=== PATIENT | female | born 1980 | race Caucasian/White ===

== ENCOUNTER 2016-10-17 10:21 | Emergency (ER) | payer OTHER ==
[2016-10-17 11:59] VITALS: BP 118/62
[2016-10-17] MEDS ORDERED: Albuterol/Ipratropium NEB.SOL* Albuterol 2.5 MG/Ipratropium 0.5 MG 3 ML INH ONE (12:45)
--- NOTE | 2016-10-17 12:52 | UC ---
Throat Pain/Nasal Charles HPI - HPI Summary HPI Summary: 35 patient presents today with complains of a sinus infection that started approximately 1 week ago. 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 She states the congestion has progressively gotten worse over the past week. She has allergies and is prone to getting sinus infections. Admits to sinus pressure, throbbing headache, pressure behind eyes and head feeling full. Denies sore throat, ear pain. Also complains of a cough due to post nasal drip and her asthma. Patient has been out of her inhaler and has been using an one that has not seemed to help her. Admits to wheezing, bronchospasms and chest tightness. Denied difficulty breathing. She has not used anything besides hot cider vinegar tea and hydrogen peroxide in her ears. She has a deviated septum and can not use nasal sprays. Denies chest pain, nausea, vomiting, abdominal pain and fever/chills. - History of Current Complaint Chief Complaint: UCRespiratory Stated Complaint: SINUS COMPLAINT Time Seen by Provider: 10/17/16 12:09 Hx Obtained From: Patient Hx Last Menstrual Period: 1 WEEK AGO ?: No Onset/Duration: Sudden Onset, Lasting Days - 7, Worse Since Severity: Moderate Pain Intensity: 6 Pain Scale Used: 0-10 Numeric Cough: Nonproductive Associated Signs & Symptoms: Positive: Wheezing, Sinus Discomfort, Nasal Discharge - Allergies/Home Medications Allergies/Adverse Reactions: Allergies Allergy/AdvReac Type Severity Reaction Status Date / Time Clarithromycin [From Biaxin] Allergy Nausea And Verified 10/17/16 11:53 Vomiting Codeine Allergy Nausea And Verified 10/17/16 11:53 Vomiting Latex Allergy Itching Verified 10/17/16 11:53 Penicillins Allergy Nausea And Verified 10/17/16 11:53 Vomiting Sulfa Antibiotics Allergy Nausea And Verified 10/17/16 11:53 Vomiting PMH/Surg Hx/FS Hx/Imm Hx Previously Healthy: Yes Endocrine History Of: Denies: Diabetes, Thyroid Disease, Hyperthyroidism, Hypothyroidism, Dyslipidemia Cardiovascular History Of: Denies: Cardiac Disorders, Hypertension, Pacemaker/ICD, Myocardial Infarction , Congestive Heart Failure, Atrial Fibrillation, Deep Vein Thrombosis, Bleeding Disorders Respiratory History Of: Reports: Asthma - seasonal asthma Denies: COPD, Bronchitis, Pneumonia, Pulmonary Embolism GI/ History Of: Denies: Gastroesophageal Reflux, Ulcer, Gastrointestinal Bleed, Gall Bladder Disease, Kidney Stones, Diverticulitis, Renal Disease, Urosepsis Neurological History Of: Denies: TIA, CVA, Dementia, Seizures, Migraine Psychological History Of: Denies: Anxiety, Depression, Bipolar Disorder, Schizophrenia, Post Traumatic Stress Disorder Cancer History Of: Denies: Lung Cancer, Colorectal Cancer, Breast Cancer, Prostate Cancer, Cervical Cancer Other History Of: Negative For: HIV, Hepatitis B, Hepatitis C - Surgical History Surgical History: Yes Surgery Procedure, Year, and Place: abcess left side of face - Family History Known Family History: Positive: None - Social History Alcohol Use: Rare Substance Use Type: None Smoking Status (MU): Former Smoker Have You Smoked in the Last Year: No When Did the Patient Quit Smoking/Using Tobacco: 15 yrs ago - Immunization History Most Recent Influenza Vaccination: NEVER GETS Review of Systems Constitutional: Negative Skin: Negative Eyes: Negative ENT: Nasal Discharge, Other - sinus pressure/congestion Respiratory: Cough Cardiovascular: Negative Gastrointestinal: Negative Genitourinary: Negative Motor: Negative Musculoskeletal: Negative Neurological: Headache Psychological: Negative All Other Systems Reviewed And Are Negative: Yes Physical Exam Triage Information Reviewed: Yes Appearance: Well-Appearing, No Pain Distress, Well-Nourished Vital Signs: Initial Vital Signs Temp 99.8 F 10/17/16 11:53 Pulse 80 10/17/16 11:53 Resp 16 10/17/16 11:53 BP 118/62 10/17/16 11:53 Pulse Ox 100 10/17/16 11:53 Vital Signs Reviewed: Yes Eyes: Positive: Conjunctiva Clear ENT: Positive: Hearing grossly normal, Pharynx normal, Nasal congestion, Nasal drainage, TMs normal. Negative: Pharyngeal erythema, Tonsillar swelling, Tonsillar exudate Dental: Positive: Percussion Tenderness @ - maxillary and frontal sinuses bilaterally. Negative: Cervical Lymphadenopathy Neck: Positive: Supple, Nontender, No Lymphadenopathy Respiratory: Positive: Chest non-tender, Lungs clear, Normal breath sounds, No respiratory distress, No accessory muscle use, Wheezing - some mild wheezing on expiration throughout lung nsell Cardiovascular: Positive: RRR, No Murmur, Pulses Normal, Brisk Capillary Refill Abdominal Exam: Normal Musculoskeletal Exam: Normal Neurological Exam: Normal Psychological Exam: Normal Skin Exam: Normal Re-Evaluation - Re-Evaluation First Eval Re-Evaluation Time: 13:10 Change: Improved - better after nebulizer treatment Throat Pain/Nasal Course/Dx - Course Course Of Treatment: patient was given a duoneb for wheezing. she has allergies and asthma and has been using inhalers that have not been helping her. felt much better after administered. will be prescribed cipro for sinusitis due to allergies and given diflucan due to infections after antibiotic use. also refilled her inhaler to use for asthma relief and bronchospasm. told to continue otc symptomatic relief and to take probiotics. - Differential Dx/Diagnosis Differential Diagnosis/HQI/PQRI: Influenza, Otitis Media, Pharyngitis, Sinusitis , URI, Other Provider Diagnoses: Acute bacterial sinusitis, bronchospasm Discharge - Discharge Plan Condition: Good Disposition: HOME Prescriptions: Albuterol HFA INHALER* [Ventolin HFA Inhaler*] 2 puff INH Q4H PRN #1 mdi PRN Reason: Wheezing Ciprofloxacin TAB* [Cipro Tab*] 500 mg PO BID #20 tab Fluconazole 150 MG (NF) [Diflucan 150 mg (NF)] 150 mg PO ONCE #2 tab Patient Education Materials: Sinusitis (ED) Referrals: Pamela Mccarty MD [Primary Care Provider] - Additional Instructions: Take medication as prescribed until all medication in finished, even if symptoms resolve. You may continue to use OTC emergen-c and apple cider vinegar as needed. If symptoms worsen or do not improve please return or follow up with your primary care provider. Use inhaler as needed for asthma. warm compresses may also help with sinus pain and pressure. Use OTC ibuprofen or decongestants for headache and pressure. Continue hydrogen peroxide in ears as needed. Drink plenty of fluids and get lots of rest. Recommend to take probiotics whil taking antibiotics,
== END 2016-10-17 13:18 | disposition home or self-care (01) ==
LOC: UCEAST 10:21
DX: J01.90 Acute sinusitis, unspecified (principal); J98.01 Acute bronchospasm; Z88.1 Allergy status to other antibiotic agents; Z88.5 Allergy status to narcotic agent; Z88.0 Allergy status to penicillin; Z88.2 Allergy status to sulfonamides; Z87.891 Personal history of nicotine dependence
CPT/HCPCS: 99212; A9270-GY; G0463

== ENCOUNTER 2017-01-07 09:00 | Emergency (ER) | payer OTHER ==
[2017-01-07 09:20] VITALS: BP 113/74
--- NOTE | 2017-01-18 15:08 | UC ---
fermin Bejarano Timothy, scribed for Ruth Williamson MD on 01/07/17 at 1051 . FLU HPI - HPI Summary HPI Summary: Piper Linder is a 36 yo female presenting to [facility] with sinus pressure/congestion, laryngitis, and post nasal drip since 01/04/17. Pt also c/o 6/10 left ear pressure beginning 01/06/17. She denies any fever. 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 She states she attempted to self-medicate with bilateral ear rinsing with peroxide with no relief. Her MHx includes seasonal asthma and allergies. - History of Current Complaint Chief Complaint: UCGeneralIllness Stated Complaint: ALLERGIES,LOST VOICE Time Seen by Provider: 01/07/17 10:58 Hx Obtained From: Patient Hx Last Menstrual Period: 12/12/16 Onset/Duration: Gradual Onset, Lasting Days, Still Present Severity Currently: Moderate Severity Initially: Moderate Pain Intensity: 6 Pain Scale Used: 0-10 Numeric Associated Signs & Symptoms: Positive: Sore Throat, Nasal Congestion. Negative : Fever - Allergy/Home Medications Allergies/Adverse Reactions: Allergies Allergy/AdvReac Type Severity Reaction Status Date / Time Clarithromycin [From Biaxin] Allergy Nausea And Verified 01/07/17 09:20 Vomiting Codeine Allergy Nausea And Verified 01/07/17 09:20 Vomiting Lactose Intolerance (GI) Allergy Nausea And Verified 01/07/17 09:20 Vomiting Latex Allergy Itching Verified 01/07/17 09:20 Penicillins Allergy Nausea And Verified 01/07/17 09:20 Vomiting Sulfa Antibiotics Allergy Nausea And Verified 01/07/17 09:20 Vomiting Home Medications: Home Medications Ciclopirox [Ciclopirox Nail Lacquer] 1 applic TOPICAL DAILY 01/07/17 [History Confirmed 01/07/17] Ibuprofen TAB* [Advil TAB*] 1 tab PO PRN 01/07/17 [History] Phenylephrine HCl (Oral) [Eql Nasal Decongestant PE] 2 tab PO Q4HR PRN 01/07/17 [History Confirmed 01/07/17] PMH/Surg Hx/FS Hx/Imm Hx Endocrine History Of: Denies: Diabetes, Thyroid Disease, Hyperthyroidism, Hypothyroidism, Dyslipidemia Cardiovascular History Of: Denies: Cardiac Disorders, Hypertension, Pacemaker/ICD, Myocardial Infarction , Congestive Heart Failure, Atrial Fibrillation, Deep Vein Thrombosis, Bleeding Disorders Respiratory History Of: Reports: Asthma - seasonal asthma Denies: COPD, Bronchitis, Pneumonia, Pulmonary Embolism GI/ History Of: Denies: Gastroesophageal Reflux, Ulcer, Gastrointestinal Bleed, Gall Bladder Disease, Kidney Stones, Diverticulitis, Renal Disease, Urosepsis Neurological History Of: Denies: TIA, CVA, Dementia, Seizures, Migraine Psychological History Of: Denies: Anxiety, Depression, Bipolar Disorder, Schizophrenia, Post Traumatic Stress Disorder Cancer History Of: Denies: Lung Cancer, Colorectal Cancer, Breast Cancer, Prostate Cancer, Cervical Cancer Other History Of: Negative For: HIV, Hepatitis B, Hepatitis C - Surgical History Surgical History: Yes Surgery Procedure, Year, and Place: abcess left side of face - Family History Known Family History: Positive: Cardiac Disease, Hypertension, Diabetes - Social History Alcohol Use: Rare Substance Use Type: Marijuana Substance Use Comment - Amount & Last Used: Daily Smoking Status (MU): Former Smoker Have You Smoked in the Last Year: No When Did the Patient Quit Smoking/Using Tobacco: 15 yrs ago Household Exposure Type: Cigarettes - Immunization History Most Recent Influenza Vaccination: NOT UTD Review of Systems Constitutional: Negative Skin: Negative Eyes: Negative ENT: Sore Throat, Ear Ache - left, Nasal Discharge - congestion + post nasal drip Respiratory: Negative Cardiovascular: Negative Gastrointestinal: Negative Genitourinary: Negative Motor: Negative Neurovascular: Negative Musculoskeletal: Negative Neurological: Negative Psychological: Negative All Other Systems Reviewed And Are Negative: Yes Physical Exam Triage Information Reviewed: Yes Appearance: No Pain Distress, Well-Nourished, Ill-Appearing Vital Signs: Initial Vital Signs Temp 99.2 F 01/07/17 09:13 Pulse 92 01/07/17 09:13 Resp 20 01/07/17 09:13 BP 113/74 01/07/17 09:13 Pulse Ox 100 01/07/17 09:13 Vital Signs Reviewed: Yes Eyes: Positive: Conjunctiva Clear. Negative: Discharge ENT: Positive: Hearing grossly normal, Pharyngeal erythema, TM bulging - left, TM red - left, Muffled/hoarse voice. Negative: Tonsillar swelling Dental: Positive: Percussion Tenderness @ - sinuses Neck: Positive: Supple, Nontender Respiratory: Positive: Lungs clear, Normal breath sounds, No respiratory distress Cardiovascular: Positive: RRR, No Murmur, Pulses Normal, Brisk Capillary Refill Musculoskeletal: Positive: Strength Intact, ROM Intact Neurological: Positive: Alert, Muscle Tone Normal Psychological Exam: Normal Psychological: Positive: Age Appropriate Behavior Skin Exam: Normal Skin: Negative: rashes Flu Course/Dx - Course Course Of Treatment: Piper Linder is a 36 yo female presenting to [facility] with sore throat and 6/10 left ear pain with nasal congestion. Her medication list was reviewed this visit. After clinical examination, she will be discharged home with laryngitis and left otitis media with appropriate instructions. - Differential Dx/Diagnosis Differential Diagnosis/HQI/PQRI: Bronchitis, Upper Respiratory Infection, Other - sinusitis, laryngitis, OM Provider Diagnoses: laryngitis, left otitis media Discharge - Discharge Plan Condition: Stable Disposition: HOME Prescriptions: Azithromycin TAB* [Zithromax TAB (Z-ELIZABETH) 250 mg #6 tabs] 2 tab PO .TODAY, THEN 1 DAILY #1 elizabeth Fluconazole 150 MG (NF) [Diflucan 150 mg (NF)] 150 mg PO ONCE #2 tab LevoCETirizine TAB (NF) [Xyzal TAB (NF)] 5 mg PO DAILY #30 tab Patient Education Materials: Laryngitis (ED), Otitis Media (ED) Forms: *Work Release Referrals: Pamela Mccarty MD [Primary Care Provider] - 2 Days Additional Instructions: You may take acetaminophen and ibuprofen, each four times a day, spaced as close as every four hours, so that you may take a medication every two hours for pain. But do not take either medication more than 4 times a day. Please follow up with your primary care physician regarding your visit to urgent care today. Please get some 900 mg Mucinex to help clear your chest of phlegm. 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 We recommend the throat comfort yogi tea to help soothe your throat as well. Return to urgent care or the emergency department with any new or recurring symptoms. The documentation as recorded by the fermin prieto Timothy accurately reflects the service I personally performed and the decisions made by me, Ruth Williamson MD.
== END 2017-01-07 11:13 | disposition home or self-care (01) ==
LOC: UCEAST 09:00
DX: J04.0 Acute laryngitis (principal); H66.92 Otitis media, unspecified, left ear; J45.909 Unspecified asthma, uncomplicated; Z88.1 Allergy status to other antibiotic agents; Z88.0 Allergy status to penicillin; Z88.2 Allergy status to sulfonamides; Z87.891 Personal history of nicotine dependence
CPT/HCPCS: 99212; G0463

== ENCOUNTER 2018-05-12 08:58 | Emergency (ER) | payer BC, OTHER ==
[2018-05-12 09:20] VITALS: BP 124/90
--- NOTE | 2018-05-12 09:24 | UC ---
Dizzy HPI HPI Summary: A 37 y/o F presents to [facility] [place] [facility] with dizziness onset this AM [employer]. Pt noticed what she thinks is a tick bite site on her interior LLE three days ago. She was seen at [facility] two days ago and had an apparent bulls eye rash. She states today the site is more pruritic, and burning/throbbing more. [facility] gave her a prescription for Doxy, which she started today, taken at 0630, when she began to feel nauseous and dizzy. Associated sx: palpitations, hand numbness, chills, sharp twinge along LUE, mild SOB. She states feeling really weird and that her body doesnt feel right. Denies sore throat, dysphagia. She also took Diflucan today before the Doxy. Hasn't really eaten today. PMHx: arthritis in lower back, carpal tunnel bilaterally in hands, vertigo. - History Of Current Complaint Stated Complaint: JOINT PAIN, DIZZY Time Seen by Provider: 05/12/18 09:13 Hx Obtained From: Patient Hx Last Menstrual Period: 12/12/16 Onset/Duration: Lasting Hours, Still Present Timing: Constant Severity Currently: Moderate Pain Intensity: 4 Pain Scale Used: 0-10 Numeric Character: Dizzy Alleviating Factor(s): Lying Down Associated Signs And Symptoms: Positive: Nausea, SOB - mild, Palpitations - Allergies/Home Medications Allergies/Adverse Reactions: Allergies Allergy/AdvReac Type Severity Reaction Status Date / Time clarithromycin [From Biaxin] Allergy Intermediate Rash Verified 05/12/18 09:19 lactose Allergy Intermediate Rash Verified 05/12/18 09:19 latex Allergy Intermediate Rash Verified 05/12/18 09:19 Penicillins Allergy Intermediate Rash Verified 05/12/18 09:19 Sulfa (Sulfonamide Allergy Intermediate Rash Verified 05/12/18 09:19 Antibiotics) MS Sulfa Antibiotics Allergy Nausea And Verified 01/07/17 09:20 [Sulfa Antibiotics] Vomiting PMH/Surg Hx/FS Hx/Imm Hx Previously Healthy: No - pos: vertigo, arthritis Other Endocrine History: neg: DM Other Cardiovascular History: neg: HTN Other Respiratory History: pos: seasonal allergies Other History Of: Negative For: HIV, Hepatitis B, Hepatitis C - Surgical History Surgical History: Yes Surgery Procedure, Year, and Place: abcess left side of face - Family History Known Family History: Positive: Cardiac Disease, Hypertension, Diabetes - Social History Occupation: Employed Part-time Lives: Alone Alcohol Use: Rare Substance Use Type: Marijuana Substance Use Comment - Amount & Last Used: Daily Smoking Status (MU): Former Smoker Have You Smoked in the Last Year: No When Did the Patient Quit Smoking/Using Tobacco: 15 yrs ago Household Exposure Type: Cigarettes - Immunization History Most Recent Influenza Vaccination: NOT UTD Review of Systems Constitutional: Chills Skin: Other - pos: erythematous area to LLE interior thigh ENT: Other - neg: sore throat, dysphagia Respiratory: Shortness Of Breath - mild Cardiovascular: Palpitations Gastrointestinal: Nausea Musculoskeletal: Other: - pos: "sharp twinge" along LUE Neurological: Numbness - hand numbness, Other - pos: dizziness All Other Systems Reviewed And Are Negative: Yes Physical Exam - Summary Physical Exam Summary: General: well-appearing, no pain distress Skin: warm, color reflects adequate perfusion, dry. On the L posterior thigh there is a 3mm wound that is scabbed with some surrounding erythema. Head: normal Eyes: EOMI, KELSEY ENT: normal Neck: supple, nontender Respiratory: CTA, breath sounds present Cardiovascular: RRR Abdomen: soft, nontender Bowel: present Musculoskeletal: normal, strength/ROM intact Neurological: sensory/motor intact, A&O x3 Psychological: affect/mood appropriate Triage Information Reviewed: Yes Vital Signs Reviewed: Yes Dizzy Course/Dx - Course Course Of Treatment: BP noted. Medications reviewed. Allergies noted. IMPROVED IN CLINIC. POSSIBLE SIDE EFFECT OF TAKING DOXYCYCLINE ON AN EMPTY STOMACH. RECOMMENDED CONTINUING THE DOXYCYCLINE; TAKE IT WITH FOOD. LABS TO INCLUDE A LYME SCREEN PENDING. F/U PMD; RECHECK SOONER IF WORSE. - Differential Dx/Diagnosis Provider Diagnoses: DIZZINESS. VERTIGO. NAUSEA Discharge - Sign-Out/Discharge Documenting (check all that apply): Patient Departure All imaging exams completed and their final reports reviewed: No Studies - Discharge Plan Condition: Stable Disposition: HOME Prescriptions: Meclizine HCl [Motion Sickness Relief] 25 mg PO Q6H PRN #15 tablet PRN Reason: Dizziness Ondansetron ODT TAB* [Zofran 4 MG Odt TAB*] 4 mg PO Q6H PRN #10 tab.odt PRN Reason: Nausea Patient Education Materials: Vertigo (ED), Dizziness (ED) Forms: *Work Release Referrals: Pamela Mccarty MD [Primary Care Provider] - Additional Instructions: FOLLOW UP WITH YOUR DOCTOR. GET RECHECKED FOR ANY WORSENING OF YOUR CONDITION OR QUESTIONS OR CONCERNS. - Billing Disposition and Condition Condition: STABLE Disposition: Home - Attestation Statements Document Initiated by Jorgeibe: Yes Documenting Scribe: Philip Krishnan Provider For Whom Scribe is Documenting (Include Credential): Dr. Patric Beth MD Scribe Attestation: I, Philip Krishnan, scribed for Dr. Patric Beth MD on 05/12/18 at 1051. Scribe Documentation Reviewed: Yes Provider Attestation: The documentation as recorded by the Philip prieto accurately reflects the service I personally performed and the decisions made by me, Dr. Patric Beth MD
[2018-05-12] MEDS ORDERED: Meclizine TAB* 12.5 MG PO ONE (09:33)
[2018-05-12] MEDS ORDERED: Ondansetron ODT TAB* 4 MG PO ONE (09:33)
[2018-05-12 16:34] LABS: EGFR Non-African American 91.1 (>60)
[2018-05-12 16:36] LABS: ABS Basophils 0 10^3/ul (0-0.2); ABS Eosinophils 0.1 10^3/ul (0-0.6); ABS Lymphocytes 1.7 10^3/ul (1.0-4.8); ABS Monocytes 0.4 10^3/ul (0-0.8); ABS Neutrophils 4.3 10^3/ul (1.5-7.7); ABS Nucleated RBC 0 10^3/ul; Eosinophil % 1.5 % (0-6); Hematocrit 40 % (35-47); Hemoglobin 13.5 g/dl (12.0-16.0); Lymphocyte % 25.6 % (25-47); Mean Corpuscular HGB Conc 34 g/dl (31-36); Mean Corpuscular Hemoglobin 29 pg (27-31); Mean Corpuscular Volume 86 fL (80-97); Mean Platelet Volume 9.9 um3 (7.4-10.4); Nucleated Red Blood Cells % 0; Platelet Count 191 10^3/ul (150-450); Red Blood Count 4.67 10^6/ul (4.00-5.40); Red Cell Distribution Width 14 % (10.5-15); White Blood Count 6.5 10^3/ul (3.5-10.8)
== END 2018-05-12 10:58 | disposition home or self-care (01) ==
LOC: UCEAST 08:58
DX: R42 Dizziness and giddiness (principal); R11.0 Nausea; Z88.0 Allergy status to penicillin; Z88.2 Allergy status to sulfonamides; Z88.1 Allergy status to other antibiotic agents; Z91.040 Latex allergy status; Z87.891 Personal history of nicotine dependence
CPT/HCPCS: 36415; 80053; 84443; 85025; 86140; 86618; 99212; A9270-GY; G0463